=== PATIENT | female | born 1960 | race Caucasian/White ===

== ENCOUNTER 2024-08-27 07:30 | Inpatient (IN) ==
[2024-09-09 13:09] LABS: Blood Urea Nitrogen 24 mg/dL (8-23); Carbon Dioxide 25 mmol/L (22-30); Chloride 101 mmol/L (96-108); Glomerular Filtration Rate 58; Glucose 82 mg/dL (70-105); Sodium 137 mmol/L (133-145)
[2024-09-09 13:11] LABS: Basophils # (Auto) 0.04 K/mcL (0.00-0.30); Basophils % (Auto) 0.6 % (0.0-2.0); Eosinophils # (Auto) 0.23 K/mcL (0.00-0.70); Eosinophils % (Auto) 3.2 % (0.0-7.0); Hematocrit 45.8 % (34.1-44.9); Lymphocytes # (Auto) 2.06 K/mcL (1.50-4.80); Lymphocytes % (Auto) 28.6 % (15.5-49.0); Mean Cell Volume 97.9 fL (80.0-100.0); Mean Corpuscular HGB Conc 32.8 g/dL (31.0-36.0); Mean Platelet Volume 9.6 fL (8.8-12.5); Monocytes # (Auto) 0.55 K/mcL (0.10-0.90); Monocytes % (Auto) 7.6 % (1.0-12.0); Neutrophils % (Auto) 59.9 % (38.0-78.0); Platelet Count 272 K/mcL (140-440); RBC 4.68 M/mcL (3.59-5.38); Red Cell Distribution Width 12.7 % (11.5-14.5); WBC 7.2 K/mcL (4.5-11.0)
[2024-09-09 13:23] LABS: INR 1.4 (0.9-1.1); Prothrombin Time 17.7 sec (11.9-14.5)
[2024-09-09 15:11] LABS: Estimated Average Glucose(eAG) 128 mg/dL; Hemoglobin A1C 6.1 % Hgb (4.0-6.0)
[2024-09-17] MEDS ORDERED: ePHEDrine 50 MG/5 ML SYRINGE (ANEST) IV ONE ×2 (07:39→10:38)
[2024-09-17] MEDS ORDERED: PHENYLephrine 1 MG/10 ML SYRINGE (ANEST) ONE (07:39)
[2024-09-17] MEDS ORDERED: ROCURONIUM 10 MG/ML ML IV ONE (07:39)
[2024-09-17] MEDS ORDERED: METOCLOPRAMIDE 10 MG/2 ML VIAL ONE (07:39)
[2024-09-17] MEDS ORDERED: ONDANSETRON 4 MG/2 ML VIAL ONE (07:39)
[2024-09-17] MEDS ORDERED: KETOROLAC 30 MG/ML VIAL ONE (07:39)
[2024-09-17] MEDS ORDERED: GLYCOPYRROLATE 0.2 MG/ML VIAL IV ONE (07:39)
[2024-09-17] MEDS ORDERED: LIDOCAINE 2% PF 5 ML VIAL ONE (07:39)
[2024-09-17] MEDS ORDERED: DEXAMETHASONE 10 MG/ML VIAL ONE (07:39)
[2024-09-17] MEDS ORDERED: TRANEXAMIC ACID 1,000 MG/10 ML VIAL ONE (07:39)
[2024-09-17] MEDS ORDERED: MIDAZOLAM 2 MG/2 ML VIAL ONE (07:42)
[2024-09-17] MEDS ORDERED: KETAMINE 50 MG/ML Syringe IV ONE (07:42)
[2024-09-17] MEDS ORDERED: PROPOFOL 200 MG/20 ML VIAL IV ONE (07:42)
[2024-09-17] MEDS: ceFAZolin 2 GM in DEXTROSE 5% IN WATER 50 ML IV SCH (08:22)
[2024-09-17] MEDS ORDERED: SUGAMMADEX SODIUM 200 MG/2 ML VIAL IV ONE (10:20)
[2024-09-17] MEDS ORDERED: ONDANSETRON 4 MG/2 ML VIAL IV PRN ×2 (10:25→10:37)
[2024-09-17] MEDS ORDERED: IPRATROPIUM/ALBUTEROL 3 ML AMPUL.NEB NEB PRN (10:27)
[2024-09-17] MEDS ORDERED: DROPERIDOL 5 MG/2 ML VIAL IV PRN (10:27)
[2024-09-17] MEDS: BUPIVACAINE 0.5% 50 ML VIAL IJ ONE (10:30)
[2024-09-17] MEDS ORDERED: ZOLPIDEM 5 MG TABLET PO PRN (10:31)
[2024-09-17] MEDS ORDERED: ALBUTEROL SULFATE 2.5 MG/3 ML NEBULIZER NEB PRN (10:31)
[2024-09-17] MEDS ORDERED: PROCHLORPERAZINE 10 MG/2 ML VIAL IV PRN (10:37)
[2024-09-17] MEDS: ACETAMINOPHEN 1,000 MG/100 ML BAG IV ONE (11:07)
[2024-09-17] MEDS: fentaNYL 100 MCG/2 ML VIAL IV PRN (11:19)
[2024-09-17] MEDS: HYDROmorphone 0.5 MG/0.5 ML SYRINGE IV PRN (11:33)
[2024-09-17] MEDS: morphine 4 MG/ML VIAL IV PRN (12:08)
[2024-09-17] MEDS: 0.9 % SODIUM CHLORIDE 1,000 ML IV SCH (12:09)
[2024-09-17] MEDS: LACTATED RINGERS 1,000 ML IV SCH (12:09)
[2024-09-17] MEDS: 0.9 % SODIUM CHLORIDE 10 ML SYRINGE IV SCH (15:47)
[2024-09-17] MEDS: DOCUSATE SODIUM 100 MG CAPSULE PO SCH (20:34)
[2024-09-17] MEDS: SENNOSIDES 1 TABLET PO SCH (20:34)
[2024-09-17] MEDS: HYDROcodone/APAP 5/325MG TABLET PO PRN (20:34)
[2024-09-18 04:47] VITALS: O2SAT 97
[2024-09-18 05:07] VITALS: TEMP 98.5
[2024-09-18 06:18] LABS: ALT/SGPT 117 U/L (<40); AST/SGOT 107 U/L (<32); Albumin 3.4 gm/dL (3.2-5.2); Albumin/Globulin Ratio 1.5 (1.0-2.3); Alkaline Phosphatase 146 U/L (39-117); Bilirubin,Total 0.7 mg/dL (0.1-1.0); Blood Urea Nitrogen 17 mg/dL (8-23); Calcium 8.2 mg/dL (8.6-10.4); Carbon Dioxide 18 mmol/L (22-30); Chloride 103 mmol/L (96-108); Globulin 2.2 gm/dL (2.2-3.7); Glomerular Filtration Rate 52; Glucose 107 mg/dL (70-105); Potassium 4.7 mmol/L (3.3-5.1); Sodium 138 mmol/L (133-145)
[2024-09-18 07:39] LABS: Hematocrit 44.3 % (34.1-44.9); Hemoglobin 14.1 g/dL (11.2-15.7); Mean Cell Volume 102.3 fL (80.0-100.0); Mean Corpuscular HGB Conc 31.8 g/dL (31.0-36.0); Mean Platelet Volume 9.8 fL (8.8-12.5); Platelet Count 236 K/mcL (140-440); RBC 4.33 M/mcL (3.59-5.38); Red Cell Distribution Width 12.8 % (11.5-14.5); WBC 9.3 K/mcL (4.5-11.0)
[2024-09-18] MEDS: ENOXAPARIN 40 MG/0.4 ML SYRINGE SQ SCH (08:14)
[2024-09-18 09:35] LABS: Basophils % (Manual) 1 % (0-2); Eosinophils % (Manual) 1 % (0-7); Lymphocytes % 14 % (15-49); Monocytes % (Manual) 7 % (1-12); Platelet Estimate NORMAL (Normal); RBC Morphology NORMAL (Normal); Reactive Lymphocytes 11 % (0-2); Segmented Neutrophils % 66 % (38-78)
== END 2024-09-18 12:40 | disposition home or self-care (01) | DRG 621 ==
LOC: MEDSUR 09-17 05:22 → EDSTATUS 09-17 14:00
PROVIDERS: ADMIT Surgery; ATTEND Surgery